=== PATIENT | male | born 1925 | race Caucasian/White ===

== ENCOUNTER 2017-04-19 09:38 | Emergency (ER) | payer MEDICARE, BC ==
[2017-04-19 10:08] VITALS: BP 151/67
--- NOTE | 2017-04-19 11:10 | UC ---
Respiratory Complaint HPI - HPI Summary HPI Summary: Patient presents with a past medical history of HTN. He states he recently flew home in a plane, and the cold air was hitting him in the head. He now complaints of plugged ear, and sinus pain and pressure. He states that as soon as he begin to eat his nose runs. He denies any fever, chills, nause, vomiting, and or chest or abdominal pain. - History of Current Complaint Chief Complaint: UCEar Stated Complaint: SINUS COMPLAINT Time Seen by Provider: 04/19/17 10:22 Hx Obtained From: Patient Onset/Duration: Gradual Onset, Lasting Days Timing: Constant Severity Initially: Mild Severity Currently: Moderate Character: Cough: Nonproductive Aggravating Factors: Other - cold air on the plan. Associated Signs And Symptoms: Positive: URI, Nasal Congestion - Risk Factors Pulmonary Embolism Risk Factors: Negative Cardiac Risk Factors: Hypertension Pseudomonas Risk Factors: Negative Tuberculosis Risk Factors: Negative - Allergies/Home Medications Allergies/Adverse Reactions: Allergies Allergy/AdvReac Type Severity Reaction Status Date / Time Iodixanol [From Visipaque] Allergy Mild Rash Verified 04/19/17 09:55 PMH/Surg Hx/FS Hx/Imm Hx Previously Healthy: Yes Cardiovascular History: Hypertension - Surgical History Surgical History: Yes Surgery Procedure, Year, and Place: TONSILS, PROSTATECTOMY and right testical, CATARACTS, cardiac stent 2004, - Family History Known Family History: Positive: None - patient denies HTN<CAD< CANCER - Social History Occupation: Retired Lives: Alone Alcohol Use: Occasionally Substance Use Type: None Smoking Status (MU): Former Smoker Type: Cigarettes When Did the Patient Quit Smoking/Using Tobacco: 20 years ago - Immunization History Most Recent Influenza Vaccination: 2012/2013 season Most Recent Tetanus Shot: 2012 Review of Systems Constitutional: Negative Skin: Negative Eyes: Negative ENT: Ear Ache, Nasal Discharge Respiratory: Negative Cardiovascular: Negative Gastrointestinal: Negative Genitourinary: Negative Motor: Negative Neurovascular: Negative Musculoskeletal: Negative Neurological: Negative Psychological: Negative All Other Systems Reviewed And Are Negative: Yes Physical Exam Triage Information Reviewed: Yes Appearance: Well-Appearing Vital Signs: Initial Vital Signs Temp 97.5 F 04/19/17 10:00 Pulse 62 04/19/17 10:00 Resp 20 04/19/17 10:00 BP 151/67 04/19/17 10:00 Pulse Ox 98 04/19/17 10:00 Vital Signs Reviewed: Yes Eye Exam: Normal ENT: Positive: Nasal congestion, Nasal drainage Neck exam: Normal Neck: Positive: 1 Respiratory Exam: Normal Cardiovascular Exam: Normal Abdominal Exam: Normal Musculoskeletal Exam: Normal Neurological Exam: Normal Psychological Exam: Normal Skin Exam: Normal UC Diagnostic Evaluation - Laboratory O2 Sat by Pulse Oximetry: 98 Respiratory Course/Dx - Course Course Of Treatment: Patient presents with a past medical history of HTN. He recently flew home and reports the cold air vent blew on him, he now complains of plugged ears, and sinus pain/pressure and discharge. He was treated with Nasacort, and Amoxillin 500 mg po bid x 10 days. I recommend to buy OTC probiotics as well. F/U with PCP. - Differential Dx/Diagnosis Differential Diagnosis/HQI/PQRI: Sinusitis Provider Diagnoses: sinusitis Discharge - Discharge Plan Condition: Stable Disposition: HOME Prescriptions: Amoxicillin PO (*) [Amoxicillin 500 MG CAP*] 500 mg PO Q12H #20 cap Triamcinolone NASAL SPRAY* [Nasacort AQ Nasal [place]*] 1 spray BOTH NARES BID #1 nasal.spr Patient Education Materials: Sinusitis (ED) Referrals: Damien Mancilla MD [Primary Care Provider] -
== END 2017-04-19 10:30 | disposition home or self-care (01) ==
LOC: UCEAST 09:38
DX: J32.9 Chronic sinusitis, unspecified (principal); I10 Essential (primary) hypertension
CPT/HCPCS: 99212; G0463